=== PATIENT | male | born 1975 | race Caucasian/White ===

== ENCOUNTER 2021-12-20 20:06 | Observation (INO) | payer OTHER ==
[~2021-12-20] VITALS: Ht 182.9 cm; Wt 88.1 kg
[2021-12-20 22:38] LABS: RED BLOOD COUNT 4.58 M/UL (4.20-5.50); WHITE BLOOD COUNT 19.4 K/UL (4.5-11.0)
[2021-12-21] MEDS ORDERED: NEXIUM40 MG PO (04:09)
[2021-12-21] MEDS ORDERED: MELATONIN10 M2 PO (04:10)
[2021-12-21] MEDS ORDERED: HYDROCODON-ACE1 EAC2 PO (12:58)
[2021-12-21] MEDS ORDERED: CYCLOBENZAPRINE10 MG PO (12:58)
== END 2021-12-21 14:38 | disposition home or self-care (01) ==
LOC: ER1 20:06 → CDU 23:29 → M/S 23:29 → CDU 23:29 → M/S 12-21 03:53
PROVIDERS: Physician Assistant; ADMIT Surgery
DX: S22.20XA Unspecified fracture of sternum, initial encounter for closed fracture (principal); S22.32XA Fracture of one rib, left side, initial encounter for closed fracture; J98.11 Atelectasis; K21.9 Gastro-esophageal reflux disease without esophagitis; V49.69XA Unspecified car occupant injured in collision with other motor vehicles in traffic accident, initial encounter; Z20.822 Contact with and (suspected) exposure to COVID-19
CPT/HCPCS: 12011; 70450; 70491; 71045; 71260; 72125; 80053; 82550; 82553; 83690; 84484; 85025; 90471; 90715; 93005; 94640; 96374; 96375; 96376; 99285; G0378; J2270; J2405; Q9967; U0002